=== PATIENT | male | born 1975 | race Caucasian/White ===

== ENCOUNTER 2017-04-25 15:46 | Emergency (ER) | payer SELFPAY ==
[~2017-04-25] VITALS: Ht 190.5 cm; Wt 82.0 kg
[2017-04-25 15:48] VITALS: BP 163/104; PULSE 77; RESP 18; TEMP 98.4; O2SAT 99
--- NOTE | 2017-04-25 15:58 | PD ---
Physical Exam Date Seen by Provider: Apr 25, 2017 Time Seen by Provider: 15:57 Narrative 41 yo male here for cat fish injury. Stabbed by one. Here to get antibiotics or something to prevent infection. Happened 2 hours ago. Pain is 6/10. Injury to left hand. Vitals are stable in triage. Awaiting bed placement. Data Data Last Documented VS Vital Signs Date Time Temp Pulse Resp B/P Pulse Ox O2 Delivery O2 Flow Rate FiO2 04/25/17 15:48 98.4 77 18 163/104 99 MDM Medical Record Reviewed: Yes Supervised Visit with ANETTE: Angelo Briceño Apr 25, 2017 15:58
--- NOTE | 2017-04-25 16:06 | PD ---
HPI Chief Complaint: Skin Problem Time Seen by Provider: 16:06 Travel History International Travel<30 days: No Contact w/Intl Traveler<30days: No Traveled to known affect area: No History of Present Illness HPI 41-year-old male presents emergency Department with complaint of being stung by a catfish [place] approximately 2 hours ago to the medial volar aspect of his left wrist. Says the catfish came from [place]. Reports pain, swelling, redness to the area. Reports subjective fever when he arrived home today and took 800 mg ibuprofen. Denies vomiting. Denies paresthesias, loss of sensation, decreased range of motion, decreased strength to the affected extremity. Denies being up-to-date on his tetanus vaccination. Has no medical complaints. No known allergies. No other modifying factors or associated signs and symptoms. PFSH Past Medical History Medical History: Denies Significant Hx Diminished Hearing: No Tetanus Vaccination: > 5 Years Influenza Vaccination: No ?: Not Past Surgical History Surgical History: No Previous Surgery Social History Alcohol Use: No Tobacco Use: Yes (1PPD) Substance Use: Yes (OCC MARIJUANA) Allergies-Medications (Allergen,Severity, Reaction): Coded Allergies: No Known Allergies (Unverified , 04/25/17) Reported Meds & Prescriptions Reported Meds & Active Scripts Active Review of Systems Except as stated in HPI: all other systems reviewed are Neg Physical Exam Narrative GENERAL: Well-nourished, well-developed male patient, in no acute distress; afebrile, nontoxic-appearing SKIN: Warm and dry. Volar aspect of left wrist with puncture wound with surrounding erythema and edema; no drainage noted; no palpable foreign body; decreased patrol deputy sheriff strength; pain elicited to the affected area with movement of fingers. Left upper extremity is supple and non-tense with 2+ radial pulse and sensory intact. HEAD: Atraumatic. Normocephalic. EYES: Pupils equal and round. No scleral icterus. No injection or drainage. ENT: Mucosa pink and moist. Airway patent. NECK: Trachea midline. CARDIOVASCULAR: Regular rate. RESPIRATORY: No accessory muscle use. GASTROINTESTINAL: Flat. MUSCULOSKELETAL: No obvious deformities. No clubbing. No cyanosis. No edema. NEUROLOGICAL: Awake and alert. Oriented 3. No obvious cranial nerve deficits. Motor grossly within normal limits. Normal speech. PSYCHIATRIC: Appropriate mood and affect; insight and judgment normal. Data Data Last Documented VS Vital Signs Date Time Temp Pulse Resp B/P Pulse Ox O2 Delivery O2 Flow Rate FiO2 04/25/17 15:48 98.4 77 18 163/104 99 Orders Wrist, Complete ([id number]) (04/25/17 16:11) Ice/Cold Pack (04/25/17 16:11) Ketorolac Inj (Toradol Inj) (04/25/17 16:15) Tetanus/Diphtheria Tox Adult (Tetanus/Di (04/25/17 16:15) Consult Hand Surgery (04/25/17 ) Diet Npo (04/25/17 Dinner) Consent (04/25/17 17:25) (Hub Use Only)Inp Phy Cons/Ref (04/25/17 ) Complete Blood Count With Diff (04/25/17 17:43) Comprehensive Metabolic Panel (04/25/17 17:43) Prothrombin Time / Inr (Pt) (04/25/17 17:43) Act Partial Throm Time (Ptt) (04/25/17 17:43) Iv Access Insert/Monitor (04/25/17 17:43) Sodium Chlor 0.9% 1000 Ml Inj (Ns 1000 M (04/25/17 17:45) MDM Medical Decision Making Medical Screen Exam Complete: Yes Emergency Medical Condition: Yes Medical Record Reviewed: Yes Differential Diagnosis marine animal sting, foreign body of left wrist, wound infection Narrative Course 41-year-old male presents after obtaining a puncture wound from a catfish [place]er[place] approximately 2 hours ago to the volar aspect of his left wrist. Patient reports subjective fever at home and took 800 mg ibuprofen prior to arrival. Tetanus updated in the ER. Left wrist x-ray ordered. Toradol and ice pack ordered. 1657: Left wrist x-ray concludes a possible linear faint foreign body in the soft tissue of the volar wrist and an osseous cyst proximal second metacarpal. I spoke with Dr. George, my attending physician, and he recommended patient to be moved to a medical bed for further treatment and evaluation. Patient moved a medical bed. See Dr. Velazquez note for final patient disposition. Diagnosis Primary Impression: Left against medical advice Disposition: 07 AGAINST MEDICAL ADVICE Sharri Virk [facility] Apr 25, 2017 16:06 Refer to discharge instructions for acute wound care Follow up with primary care provider Return to the emergency department immediately with worsening of symptoms Med/Other Pt SpecificInfo: Prescription(s) given Scripts Ibuprofen 800 Mg [id number] Mg PO Q6HR PRN (PAIN) #30 TAB Ref 0 Prov:Sharri Virk 04/25/17 Doxycycline Hyclate 100 Mg [id number] Mg PO BID 10 Days Ref 0 Prov:Sharri Virk 04/25/17 Disposition: 01 DISCHARGE HOME Condition: Stable Sharri Virk Apr 25, 2017 16:06
[2017-04-25] MEDS ORDERED: TETANUS/DIPHTHERIA TOXOID ADULT 0.5 ML VIAL IM ONE (16:15)
[2017-04-25] MEDS ORDERED: KETOROLAC TROMETHAMINE 60 MG/2 ML (IM) VIAL IM ONE (16:15)
--- NOTE | 2017-04-25 16:34 | RADRPT ---
EXAM DATE/TIME: 04/25/2017 16:29 [place] COMPARISON: No previous studies available for comparison. INDICATIONS : Puncture wound from catfish [place]er[place]. Possible foreign body. MEDICAL HISTORY : None. SURGICAL HISTORY : None. ENCOUNTER: Initial ACUITY: 1 day PAIN SCORE: 7/10 LOCATION: Left upper extremity FINDINGS: Three-view examination of the wrist demonstrate the osseous structures to be intact and in normal ali gnment. Osseous cyst in the proximal metaphysis of the 2nd metacarpal. No fracture seen. The dista l radius and ulna are intact. There is some soft tissue swelling about the volar wrist and there is some very faint linear opacity within the soft tissues. This could potentially represent a foreign b felipe. CONCLUSION: 1. Possible linear faint foreign body in the soft tissues of the volar wrist. 2. Osseous cyst proximal 2nd metacarpal. Gerry Dominguez MD on April 25, 2017 at 16:30 Board Certified Radiologist. This report was verified electronically.
[2017-04-25] MEDS ORDERED: IBUP800T23 PO (16:45)
[2017-04-25] MEDS ORDERED: DOXY100C PO (16:45)
--- NOTE | 2017-04-25 17:11 | PD ---
Physical Exam Narrative Patient was seen by my household assistant and signed out to me. Data Data Last Documented VS Vital Signs Date Time Temp Pulse Resp B/P Pulse Ox O2 Delivery O2 Flow Rate FiO2 04/25/17 15:48 98.4 77 18 163/104 99 Orders Wrist, Complete ([id number]) (04/25/17 16:11) Ice/Cold Pack (04/25/17 16:11) Ketorolac Inj (Toradol Inj) (04/25/17 16:15) Tetanus/Diphtheria Tox Adult (Tetanus/Di (04/25/17 16:15) Consult Hand Surgery (04/25/17 ) Diet Npo (04/25/17 Dinner) Consent (04/25/17 17:25) (Hub Use Only)Inp Phy Cons/Ref (04/25/17 ) Complete Blood Count With Diff (04/25/17 17:43) Comprehensive Metabolic Panel (04/25/17 17:43) Prothrombin Time / Inr (Pt) (04/25/17 17:43) Act Partial Throm Time (Ptt) (04/25/17 17:43) Iv Access Insert/Monitor (04/25/17 17:43) Sodium Chlor 0.9% 1000 Ml Inj (Ns 1000 M (04/25/17 17:45) MDM Supervised Visit with ANETTE: Yes Narrative Course 18 10 PM. Patient wants to leave AMA. I had a long talk with the patient in front of my nurse. I warned patient of possible complication of leaving including serious infection, losing his arm and . Patient still signed AMA. Diagnosis Primary Impression: Marine animal sting Qualified Code: T63.691A - Marine animal sting, accidental or unintentional, initial encounter Additional Impression: Foreign body of wrist, left, superficial, infected Qualified Code: S60.852A - Foreign body of wrist, left, superficial, infected , initial encounter Referrals: Primary Care Physician Additional Instruction: Patient left AMA. Disposition: 07 AGAINST MEDICAL ADVICE Condition: Stable Kenny George MD Apr 25, 2017 17:11
[2017-04-25] MEDS ORDERED: SODIUM CHLOR 0.9% 1000 ML INJ 1,000 ML IV SCH (17:45)
== END 2017-04-25 21:52 | disposition left against medical advice (07) ==
LOC: NEPD 15:46
DX: S61.532A Puncture wound without foreign body of left wrist, initial encounter (principal); F17.200 Nicotine dependence, unspecified, uncomplicated; W22.8XXA Striking against or struck by other objects, initial encounter; Z23 Encounter for immunization
CPT/HCPCS: 73110; 90471; 90714; 96372; 99284; J1885